=== PATIENT | female | born 1990 | race Caucasian/White ===

== ENCOUNTER 2023-04-13 14:40 | Inpatient (IN) | payer BC ==
[2023-04-13] MEDS ORDERED: miSOPROStoL 200 MCG TAB PO PRN (15:08)
[2023-04-13] MEDS ORDERED: TRANEXAMIC 1,000 MG/100ML-NACL 1,000 MG in EMPTY BAG 1 BAG IV PRN (15:08)
[2023-04-13] MEDS ORDERED: CARBOPROST TROMETHAMINE 250 MCG/ML 1 ML AMP IM PRN (15:08)
[2023-04-13] MEDS ORDERED: METHYLERGONOVINE 0.2 MG/ML 1 ML AMP IM PRN (15:08)
[2023-04-13] MEDS ORDERED: TERBUTALINE 1 MG/ML VIAL SQ PRN (15:08)
[2023-04-13] MEDS ORDERED: LIDOCAINE 0.5% (PF) 5 MG/ML (50 ML SDV) SQ PRN (15:08)
[2023-04-13] MEDS ORDERED: OXYTOCIN 10 UNIT/ML 1 ML VIAL IM PRN (15:08)
[2023-04-13 15:56] LABS: Anisocytosis Slight; Basophils % (A) 0 %; Eosinophils % (A) 0 %; HCT 36.6 % (34.0-46.0); HGB 11.9 gm/dL (11.4-16.0); Hypochromasia Moderate; Lymphocytes # (A) 1.2 k/uL (1.0-4.8); Lymphocytes % (A) 10 %; MCH 26.4 pg (25.0-35.0); MCHC 32.4 g/dL (31.0-37.0); MCV 81.6 fL (80.0-100.0); Mean Platelet Volume 9.7; Monocytes # (A) 0.3 k/uL (0-1.0); Monocytes % (A) 3 %; Neutrophils # (A) 10.5 k/uL (1.3-7.7); Neutrophils % (A) 86 %; Platelet Count 178 k/uL (150-450); Poikilocytosis Slight; RBC 4.49 m/uL (3.80-5.40); WBC 12.2 k/uL (3.8-10.6)
[2023-04-13] MEDS: LACTATED RINGERS 1,000 ML IV SCH (17:33)
[2023-04-13] MEDS: OXYTOCIN 30 UNITS/500 ML NS 30 UNIT in SALINE 1 500ML.BAG IV SCH ×2 (18:30→22:01)
--- NOTE | 2023-04-13 18:57 | P.HPOB ---
History of Present Illness H&P Date: 04/13/23 Chief Complaint: Active Labor Ms. Tapia is a 32 year old at 40 weeks and 7 days with EDC of 04/09/2023 (by LMP consistent with 15 week US) who presents in active labor at 6-7 centimeters dilation with membranes intact, rere regularly and painfully. has been uncomplicated. Of note, the patient did decline 1 hour GTT and GBS culture as well as TDap, RSV, and influenza vaccinations. The fetus was estimated to be in the 74%ile for growth at 32 weeks. Obstetric history: 3 FTVD work-up: blood type O positive, antibody negative, rubella immune, HBsAg negative, VDRL non-reactive, HIV negative, HCV Ab negative, gonorrhea negative, chlamydia negative. Past Medical History Past Medical History: No Reported History History of Any Multi-Drug Resistant Organisms: None Reported Past Surgical History: No Surgical Hx Reported Past Anesthesia/Blood Transfusion Reactions: No Reported Reaction Past Psychological History: No Psychological Hx Reported Smoking Status: Never smoker Medications and Allergies Home Medications Medication Instructions Recorded Confirmed Type Vit No.179/Iron/Folic 1 each PO DAILY 04/13/23 04/13/23 History [ Tablet] Allergies Allergy/AdvReac Type Severity Reaction Status Date / Time No Known Allergies Allergy Verified 04/13/23 14:53 Exam Vital Signs Temp Pulse Resp BP 04/13/23 16:08 98.1 F 107 H 17 123/78 04/13/23 15:06 98.1 F 107 H 17 123/78 Intake and Output 04/13/23 04/13/23 04/13/23 06:59 14:59 22:59 Other: Weight 83.915 kg 83.915 kg Focused physical exam is performed. This is a healthy-appearing in no apparent distress. Breathing is non-labored. Abdomen is gravid and non-tender. Cervical exam is 7 cm, 90 effacement, -2 station. Extremeties non-tender and non-edematous. heart tones are Category I and tocometer is graphing contractions every 2-4 minutes. Results Result Diagrams: 04/13/23 15:27 Abnormal Lab Results - Last 24 Hours (Table) 04/13/23 Range/Units 15:27 WBC 12.2 H (3.8-10.6) k/uL RDW 16.0 H (11.5-15.5) % Neutrophils # 10.5 H (1.3-7.7) k/uL Assessment and Plan Assessment: 32 year old at 40 weeks and 7 days in active, spontaneous labor Plan: Admit, clear liquid diet, expectant management, intermittent monitoring. Anticipate vaginal delivery. Time with Patient: Less than 30
[2023-04-13] MEDS ORDERED: diphenhydrAMINE 25 MG CAP PO PRN (19:00)
[2023-04-13] MEDS ORDERED: BENZOCAINE/MENTHOL SPRAY 1 GM/SPRAY AEROSOL TOPICAL PRN (19:00)
[2023-04-13] MEDS ORDERED: diphenhydrAMINE 50 MG CAP PO PRN (19:00)
[2023-04-13] MEDS ORDERED: LANOLIN CREAM 5 GM TUBE TOPICAL PRN (19:00)
[2023-04-13] MEDS ORDERED: SIMETHICONE 80 MG CHEWABLE PO PRN (19:00)
[2023-04-13] MEDS ORDERED: diphenhydrAMINE 50 MG/ML 1 ML VIAL IVP PRN ×2 (19:00)
[2023-04-13] MEDS ORDERED: HYDROCORTISONE 2.5% RECTAL CREAM 30 GM TUBE RECTAL PRN (19:00)
[2023-04-13] MEDS ORDERED: ZOLPIDEM 5 MG TAB PO PRN (19:00)
--- NOTE | 2023-04-13 19:00 | P.PROBDLV ---
Vaginal Delivery Note - . Vaginal Delivery Note: DATE OF SERVICE: 04/13/2023 PROCEDURE: Normal Vaginal Delivery ATTENDING: Dr. Jackelyn Burns MD ESTIMATED BLOOD LOSS: 300 mL FINDINGS: VFI, Apgars 7/8. Weight 8 pounds and 11 ounces (3930 grams) PROCEDURE: Ms. Tapia is a 32 year old at 40 weeks and 4 days presenting to labor and delivery in active spontaneous labor. The has been uncomplicated. For further details, please review the admitting H&P. The patient was completely dilated at 1815. She pushed effectively with spontaneous rupture of membranes at 1816. A viable female was delivered at 1820. The infant was placed on the maternal abdomen and bulb suctioned. The infant was noted to be spontaneously crying. Cord was clamped and cut after a 7 minute delay per patient request. The was handed off to the pediatric team. Placenta was delivered whole with gentle cord traction at 1830. Oxytocin was started to facilitate uterine tone. Uterine fundus was found to be firm and below the umbilicus upon fundal massage. Thorough examination of the cervix, vagina, periurethral area, and perineum revealed a large first degree laceration that was repaired with 3-0 Vicryl in the usual fashion. The patient is stable and allowed to begin the bonding process.
[2023-04-13] MEDS: IBUPROFEN 600 MG TAB PO PRN (19:32)
[2023-04-13] MEDS: SENNOSIDES-DOCUSATE SODIUM 1 EACH TAB PO SCH ×2 (20:06→20:31)
[2023-04-13] MEDS: ACETAMINOPHEN TAB 325 MG TAB PO PRN (20:47)
[2023-04-13 22:26] LABS: Anisocytosis Slight; Basophils % (A) 0 %; Eosinophils # (A) 0.1 k/uL (0-0.7); Eosinophils % (A) 1 %; HCT 32.8 % (34.0-46.0); HGB 10.9 gm/dL (11.4-16.0); Hypochromasia Slight; Lymphocytes # (A) 0.8 k/uL (1.0-4.8); Lymphocytes % (A) 4 %; MCH 26.7 pg (25.0-35.0); MCHC 33.1 g/dL (31.0-37.0); MCV 80.5 fL (80.0-100.0); Mean Platelet Volume 9.6; Monocytes # (A) 0.5 k/uL (0-1.0); Monocytes % (A) 2 %; Neutrophils # (A) 17.5 k/uL (1.3-7.7); Neutrophils % (A) 92 %; Platelet Count 171 k/uL (150-450); Poikilocytosis Slight; RBC 4.08 m/uL (3.80-5.40); RDW 16.2 % (11.5-15.5); WBC 19.1 k/uL (3.8-10.6)
[2023-04-14] MEDS: IBUPROFEN 600 MG TAB PO PRN ×3 (01:08→12:26)
[2023-04-14] MEDS: LACTATED RINGERS 1,000 ML IV SCH (02:22)
[2023-04-14 07:25] LABS: Anisocytosis Slight; Basophils % (A) 0 %; Eosinophils # (A) 0.1 k/uL (0-0.7); Eosinophils % (A) 1 %; HCT 27.8 % (34.0-46.0); Hypochromasia Slight; Lymphocytes # (A) 1.6 k/uL (1.0-4.8); Lymphocytes % (A) 13 %; MCH 26.4 pg (25.0-35.0); MCHC 32.6 g/dL (31.0-37.0); MCV 80.9 fL (80.0-100.0); Mean Platelet Volume 11.4; Monocytes # (A) 0.5 k/uL (0-1.0); Monocytes % (A) 4 %; Neutrophils # (A) 9.9 k/uL (1.3-7.7); Neutrophils % (A) 81 %; Platelet Count 156 k/uL (150-450); Poikilocytosis Slight; RBC 3.44 m/uL (3.80-5.40); RDW 16.3 % (11.5-15.5); WBC 12.2 k/uL (3.8-10.6)
[2023-04-14 08:06] LABS: HGB 9.1 gm/dL (11.4-16.0)
[2023-04-14] MEDS: SENNOSIDES-DOCUSATE SODIUM 1 EACH TAB PO SCH (08:14)
[2023-04-14] MEDS: ACETAMINOPHEN TAB 325 MG TAB PO PRN (08:14)
[2023-04-14 08:39] VITALS: BP 113/76; PULSE 84; RESP 16; TEMP 97.8
--- NOTE | 2023-04-14 09:57 | P.DS ---
Providers Date of admission: 04/13/23 15:00 Expected date of discharge: 04/14/23 Attending physician: Jackelyn Burns MD Primary care physician: Stated None Hospital Course: Ms. Tapia is a 32 year old now PPD#1 s/p normal spontaneous vaginal delivery without complications. The patient is doing well this morning and had no acute events overnight. She has no complaints this morning. She reports minimal lochia, passing flatus, voiding without difficulty, ambulating, and eating/drinking without nausea or vomiting. doing well at bedside. She denies chest pain, shortness of breathing, fevers, or chills overnight. She de nies pain or swelling in the legs. restrictions are reviewed with the patient including pelvic rest for 6 weeks. The patient is encouraged to call the office if she experiences any heavy bleeding, foul-smelling discharge, breast complaints, or any if she has any other concerns. She will follow up in the office with in 6 weeks for exam. She plans to use over the counter Motrin and Tylenol for pain as needed. All questions are answered. Assessment: 32 year old now PPD#1 s/p Plan - Discharge Summary New Discharge Prescriptions: No Action Vit No.179/Iron/Folic [ Tablet] 1 each PO DAILY Discharge Medication List Vit No.179/Iron/Folic [ Tablet] 1 each PO DAILY 04/13/23 [History] Follow up Appointment(s)/Referral(s): Jackelyn Burns MD [STAFF PHYSICIAN] - 6 Weeks Activity/Diet/Wound Care/Special Instructions: Instructions 1. Do not begin any exercise program for 3 weeks. 2. Do not resume sexual relations for 6 weeks or longer if uncomfortable. 3. You may take tub baths or showers at any time. 4. You may use tampons if desired after 6 weeks. 5. Keep any areas repaired with stitches clean and dry. 6. If you are not nursing, wear a good fitting, supportive bra during the day and limit fluid intake for at least 1 week to prevent breast engorgement. 7. Call the office, , within the next week to make appointment for your 6 week checkup if it has not already been made. 8. Report any of the following occurrences to the doctor promptly: a. Heavy, excessive bleeding b. Chills, fever c. Burning or frequency of urination d. Pain or redness and breasts if nursing e. Increasing pain or swelling of vulva (stitches). In addition to the above instructions, the following additional should be followed: 1. No heavy lifting or straining (exercising) until after 6 week checkup. 2. Keep abdominal incision clean and dry: You may wear a dressing if more comfortable. 3. Make office appointment for 2 weeks after delivery date. Discharge Disposition: HOME SELF-CARE
== END 2023-04-14 16:45 | disposition home or self-care (01) | DRG 807 ==
LOC: FBPOP 14:40 → 4FBP 15:00
PROVIDERS: ADMIT Obstetrics & Gynecology; ATTEND Obstetrics & Gynecology
PROC: 10E0XZZ Delivery of Products of Conception, External Approach (ICD-10-PCS; principal; 2023-04-13)
PROC: 0HQ9XZZ Repair Perineum Skin, External Approach (ICD-10-PCS; 2023-04-13)
DX: O48.0 Post-term pregnancy (principal); O70.0 First degree perineal laceration during delivery; Z3A.40 40 weeks gestation of pregnancy; Z37.0 Single live birth
CPT/HCPCS: 59025; 85025; 86850; 86900; 86901; 99213